=== PATIENT | male | born 1965 | race Two or more races ===

== ENCOUNTER 2019-06-30 09:54 | Emergency (ER) | payer MEDICAID ==
[~2019-06-30] VITALS: Ht 182.9 cm; Wt 108.5 kg
--- NOTE | 2019-06-30 12:00 | NUR ---
TO ROOM 38
--- NOTE | 2019-06-30 12:12 | NUR ---
PT IN GOWN. ORIENTED TO ROOM. FAMILY AT BS
--- NOTE | 2019-06-30 12:34 | NUR ---
PT HERE FOR PAIN IN RECTUM. STATES IT HAS BEEN THERE 3 DAYS. STATES HE HAS HAD A FEVER AT HOME THE PAST FEW DAYS BUT HAS NOT TAKEN IT WITH A THERMOMETER SO DOES NOT KNOW WHAT IT WAS. PT RESTING ON GURNEY. NADN. CONNECTED TO MONITOR. VSS. ANOSCOPY SET UP AT BEDSIDE PER MD ORDER.
[2019-06-30 12:37] VITALS: BP 125/76
--- NOTE | 2019-06-30 12:37 | NUR ---
PT HAS TAKEN OTC HEMORRHODIAL SUPPOSOTORIES.
--- NOTE | 2019-06-30 13:08 | NUR ---
PT SEEN BY MD, AWARE OF POC. REQUESTING "FEVER MEDICATION." THIS RN TOOK TEMP AND IT IS 99 F. EXPLAINED THAT MEDICATION IS NOT GIVEN FOR THIS TEMP. WILL ALERT .
--- NOTE | 2019-06-30 13:28 | NUR ---
PT AMBULATORY WITH STEADY GAIT FROM ROOM TO BATHROOM AND BACK AGAIN. STATES HE IS FEELING MUCH BETTER. DRESSED AND READY FOR DC.
== END 2019-06-30 13:48 | disposition home or self-care (01) ==
LOC: ED 13:00
DX: K62.89 Other specified diseases of anus and rectum (principal); K64.9 Unspecified hemorrhoids
CPT/HCPCS: 99283